=== PATIENT | female | born 1980 | race American Indian/Alaskan Native ===

== ENCOUNTER 2016-10-09 08:57 | Outpatient (CLI) | payer BC ==
--- NOTE | 2016-10-09 10:15 | Ultrasound Report ---
Bilateral mammogram and left breast ultrasound: Patient with breast reduction surgery approximately one year ago currently identifying a palpable in the inferior left breast. Routine views and focal spot compression left breast imaging demonstrates mild architectural distortion bilaterally consistent with breast surgery. A marker was placed over the area of the patient's concern. There is a small nodule which is well-circumscribed related to the marker location. No other focal findings noted. Ultrasound at the area of concern demonstrates a 17 mm well-defined cyst with a small somewhat thick walled cyst attached to the inner margin of the posterior wall. This is in the 6:30 position approximately 10 cm from the nipple. There is a slightly complex echolucent cystic appearing mass is noted adjacent to this measuring 7.4 mm. 8 cm from the nipple there is a simple appearing cyst measuring 5 mm and 4 cm from the nipple there is a 12 mm primarily echolucent and sharply defined mass with an eccentric area of echogenicity. CAD used. Impression: 1. Architectural distortion of both breasts consistent with her surgical history. 2. The mammographic findings are consistent with the palpable finding. They all appear to represent benign cysts although somewhat complicated. Recommendation: Repeat left mammogram and left breast ultrasound in 6 months unless a progressive clinical indication would suggest otherwise. BI-RADS CATEGORY: 3 = Probably benign ACR BI-RADS MAMMOGRAPHIC CODES: 0 = Needs additional imaging evaluation; 1 = Negative; 2 = Benign; 3 = Probably benign; 4 = Suspicious; 5 = Malignant; 6 = Known biopsy-proven malignancy COMMENT: 1. Dense breast tissue, i.e., adenosis, fibrocystic changes, etc., may obscure an underlying neoplasm. 2. Approximately 10% of cancers are not detected with mammography. 3. A negative mammography report should not delay biopsy if a clinically suspicious mass is present.
== END 2016-10-09 08:58 | disposition home or self-care (01) ==
LOC: SPVWC 08:57
PROVIDERS: ATTEND Internal Medicine
DX: N63 Unspecified lump in breast (principal)
CPT/HCPCS: 76642; G0204; 77066